=== PATIENT | female | born 1955 | race Two or more races ===

== ENCOUNTER 2023-03-26 15:13 | Inpatient (IN) | payer OTHER, MEDICAID ==
[~2023-03-26] VITALS: Ht 160 cm; Wt 81.8 kg
[2023-03-26 16:04] LABS: Basophils # (auto) 0.1 10 ^3/uL (0-0.2); Basophils % (auto) 0.8 % (0.0-2.0); Eosinophils # (auto) 0.2 10 ^3/uL (0-0.8); Eosinophils % (auto) 3.1 % (0.0-7.0); Hematocrit 44.9 % (36.0-46.0); Hemoglobin 14.5 g/dL (12.2-16.2); Lymphocytes % (auto) 13.6 % (10.0-50.0); Mean Corpuscular Hemoglobin 30.3 pg (28.0-32.0); Mean Corpuscular Hgb Conc. 32.4 g/dL (32.0-36.0); Mean Corpuscular Volume 93.5 fL (80.0-100.0); Monocytes # (auto) 0.8 10 ^3/uL (0-1.3); Monocytes % (auto) 11.6 % (0.0-12.0); Neutrophils % (auto) 70.9 % (37.0-80.0); Nucleated Red Blood Cells % 0.1 %; Red Cell Distribution Width 13.4 % (11.8-14.3)
[2023-03-26 16:19] LABS: Alanine Aminotransferase 43 U/L (7-40); Albumin 4.4 g/dL (3.2-4.8); Alkaline Phosphatase 143 U/L (46-116); Anion Gap 6.1 (5-15); Aspartate Aminotransferase 35 U/L (13-40); BUN/Creatinine Ratio 22.8 (10.0-20.0); Bilirubin, Total 0.9 mg/dL (0.2-1.0); Blood Urea Nitrogen 31 mg/dL (9-23); Calcium 9.8 mg/dL (8.7-10.4); Carbon Dioxide 30.9 mmol/L (20-30); Chloride 99 mmol/L (98-107); Glucose 143 mg/dL (74-106); Potassium 4.9 mmol/L (3.5-5.1); Sodium 136 mmol/L (136-145)
[2023-03-26] MEDS ORDERED: ENOXAPARIN SOD 80 MG/0.8ML SYRINGE SC ONE (16:45)
[2023-03-26] MEDS ORDERED: FUROSEMIDE 40 MG/4 ML VIAL IV ONE (16:45)
[2023-03-26] MEDS ORDERED: MORPHINE SULFATE INJ 2 MG/ml SYRG IV PRN (17:30)
[2023-03-26] MEDS ORDERED: ACETAMINOPHEN 325 MG TAB PO PRN (17:30)
[2023-03-26] MEDS ORDERED: DAPA1TAB4 PO (17:30)
[2023-03-26] MEDS ORDERED: ALBU108A5 PO (17:30)
[2023-03-26] MEDS ORDERED: ALBU0.633 NEB (17:30)
[2023-03-26] MEDS ORDERED: DULO1CAP5 PO (17:30)
[2023-03-26] MEDS ORDERED: TEMAZEPAM 15 MG CAP PO PRN (17:30)
[2023-03-26] MEDS ORDERED: TEMA15CA PO (17:30)
[2023-03-26] MEDS ORDERED: ATOR20TA50 PO (17:30)
[2023-03-26] MEDS ORDERED: FURO40TA4 PO (17:30)
[2023-03-26] MEDS ORDERED: SACU1TAB4 PO (17:30)
[2023-03-26] MEDS ORDERED: SPIR25TA8 PO (17:30)
[2023-03-26] MEDS ORDERED: METO1TAB9 PO (17:30)
[2023-03-26] MEDS ORDERED: BUME1TAB3 PO (17:30)
[2023-03-26] MEDS ORDERED: ENAL1TAB48 PO (17:30)
[2023-03-26] MEDS ORDERED: CITA-77 PO (17:30)
[2023-03-26] MEDS ORDERED: NITROGLYCERIN 0.4 MG SL TAB SL PRN (17:30)
[2023-03-26] MEDS ORDERED: LEVA1AER PO (17:30)
[2023-03-26] MEDS ORDERED: DEXTROSE (50%) 50ML SYRG IV PRN (17:45)
[2023-03-26 17:47] VITALS: TEMP 98.5
[2023-03-26] MEDS ORDERED: ALBUTEROL SULF 2.5 MG/0.5ML(0.5%) NEB SOLN NEB PRN (18:15)
[2023-03-26 18:25] VITALS: BP 132/87; PULSE 84; RESP 18; O2SAT 98
[2023-03-26 18:51] LABS: LDL Cholesterol 75 mg/dL (< 100); Triglycerides 128 mg/dL (< 150)
[2023-03-26 18:52] LABS: HDL Cholesterol 33 mg/dL (40-59)
[2023-03-26 18:53] LABS: Cholesterol 129 mg/dL (< 200)
[2023-03-26] MEDS ORDERED: SACUBITRIL VALSARTAN PO SCH (22:00)
[2023-03-26] MEDS ORDERED: ENOXAPARIN SOD 100 MG/1 ML SYRINGE SC SCH (22:00)
[2023-03-26] MEDS ORDERED: InsuLIN REG 1unit/0.01ml Soln (100units/ml) SC SCH (22:00)
[2023-03-26] MEDS ORDERED: ACCU-CHEK COMFORT CURVE STRIP VI SCH (22:00)
[2023-03-26] MEDS ORDERED: ENALAPRIL MALEATE 10 MG TAB PO SCH (22:00)
[2023-03-26 22:41] VITALS: BP 126/75; PULSE 90; RESP 18; O2SAT 94
[2023-03-27] MEDS ORDERED: DULoxetine HCL 30 MG CAP PO SCH (10:00)
[2023-03-27] MEDS ORDERED: CITALOPRAM HYDROBR 20 MG TAB PO SCH (10:00)
[2023-03-27] MEDS ORDERED: METOPROLOL SUCCINATE XL 50 MG TAB PO SCH (10:00)
[2023-03-27] MEDS ORDERED: SPIRONOLACTONE 25 MG TAB PO SCH (10:00)
[2023-03-27] MEDS ORDERED: FUROSEMIDE 20 MG/2 ML VIAL IV SCH (10:00)
[2023-03-27] MEDS ORDERED: ATORVASTATIN 20 MG TAB PO SCH (10:00)
== END 2023-03-27 02:02 | disposition left against medical advice (07) | DRG 292 ==
LOC: ER 15:13 → TELE 17:28
PROVIDERS: ADMIT Nurse Practitioner Family; ATTEND Nurse Practitioner Family
DX: I50.43 Acute on chronic combined systolic (congestive) and diastolic (congestive) heart failure (principal); N17.9 Acute kidney failure, unspecified; J44.9 Chronic obstructive pulmonary disease, unspecified; E11.9 Type 2 diabetes mellitus without complications; E66.01 Morbid (severe) obesity due to excess calories; R79.89 Other specified abnormal findings of blood chemistry; Z53.29 Procedure and treatment not carried out because of patient's decision for other reasons; Z60.2 Problems related to living alone; Z68.31 Body mass index [BMI] 31.0-31.9, adult; Z71.3 Dietary counseling and surveillance
CPT/HCPCS: 36415; 71045; 80053; 80061; 82962; 83036; 83880; 83930; 84443; 84484; 85025; 85379; 93005; 99291; G0378

== ENCOUNTER 2023-05-05 09:54 | Day surgery (SDC) | payer OTHER, MEDICAID ==
[~2023-05-05] VITALS: Ht 160 cm; Wt 75.3 kg
[2023-05-05] VITALS (12 sets, daily range): BP systolic 75–116; BP diastolic 34–87; PULSE 70–89; RESP 14–19; TEMP 98; O2SAT 94–97
[~2023-05-05 09:54] MED LIST: ALBU0.633 NEB; ALBU108A5 PO; ATOR20TA50 PO; CHOL100079 PO; DAPA1TAB4 PO; DULO1CAP5 PO; FLUT250M2 INH; FURO40TA4 PO; LEVA1AER PO; METO1TAB9 PO; NITR0.4S29 SL; SACU1TAB PO; SPIR25TA8 PO
[2023-05-05] MEDS ORDERED: LIDOCAINE VISCOUS 2% 15ML UD PO ONE (10:45)
[2023-05-05] MEDS ORDERED: ONDANSETRON HCL 4 MG/2 ML VIAL IV ONE (10:45)
[2023-05-05] MEDS ORDERED: MIDAZOLAM HCL 2MG/2ML 2ml VIAL (1mg/ml) IV ONE (10:45)
[2023-05-05] MEDS ORDERED: fentaNYL CITRATE 100 MCG/2 ML VL IV ONE (10:45)
[2023-05-05] MEDS ORDERED: NALOXONE HCL 0.4 MG/ML VIAL ONE (11:46)
[2023-05-05] MEDS ORDERED: FLUMAZENIL 0.1 MG/ML INJ 10ML MDV IV ONE (11:46)
[2023-05-05] MEDS ORDERED: IODIXANOL 320MG/ML 100ML BTL IV ONE (12:37)
[2023-05-05] MEDS ORDERED: LIDOCAINE 2%HCL (LOCAL ANESTH.) INJ 20ML MDV ONE (12:37)
[2023-05-05] MEDS ORDERED: VERAPAMIL 2.5MG/ML INJ 2ML VIAL IV ONE (12:53)
[2023-05-05] MEDS ORDERED: HEPARIN SODIUM (PORCINE) 5000 UNITS/ML 1ML VIAL ONE (12:53)
[2023-05-05] MEDS ORDERED: SODIUM CHL 0.9% 50 ML ONE (12:56)
[2023-05-05] MEDS ORDERED: ATOR10TA PO (14:36)
[2023-05-05] MEDS ORDERED: CHOL1TAB22 PO (14:36)
== END 2023-05-05 17:12 | disposition home or self-care (01) ==
LOC: CATH 09:54
PROVIDERS: ATTEND Internal Medicine
DX: R94.39 Abnormal result of other cardiovascular function study (principal); I25.118 Atherosclerotic heart disease of native coronary artery with other forms of angina pectoris; I42.8 Other cardiomyopathies; I11.0 Hypertensive heart disease with heart failure; I08.3 Combined rheumatic disorders of mitral, aortic and tricuspid valves; Z79.899 Other long term (current) drug therapy; I50.9 Heart failure, unspecified; Z98.890 Other specified postprocedural states
CPT/HCPCS: 93312; 93458; C1725; C1769; C1894; J1644; J2250; J2405; J3010; J7030; Q9967; 99152

== ENCOUNTER 2023-12-14 23:08 | Inpatient (IN) | payer OTHER, MEDICAID ==
[~2023-12-14] VITALS: Ht 160 cm; Wt 92.1 kg
[~2023-12-14 23:08] MED LIST changes: -ALBU0.633 NEB; +ALBU0.636 NEB; +ATOR10TA PO; -ATOR20TA50 PO; -CHOL100079 PO; +CHOL1TAB22 PO
[2023-12-15] VITALS (8 sets, daily range): BP systolic 100; BP diastolic 49; PULSE 67–92; RESP 12–18; TEMP 97.5; O2SAT 93–98
[2023-12-15] MEDS: ONDANSETRON HCL 4 MG/2 ML VIAL IV ONE (00:44)
[2023-12-15] MEDS: HYDROmorphone HCL 2 MG/ML VL/or syr IV ONE (00:46)
[2023-12-15] MEDS: PIPERACILLIN-TAZOB 3.375GM 100 ML IV ONE (00:51)
[2023-12-15 01:05] LABS: Base Excess -0.2 mmol/L (-2.0-2.0)
[2023-12-15 01:06] LABS: Basophils # (auto) 0.1 10 ^3/uL (0-0.2); Eosinophils # (auto) 0 10 ^3/uL (0-0.8); Hematocrit 49.8 % (36.0-46.0); Lymphocytes # (auto) 0.4 10 ^3/uL (0.4-5.4); Monocytes # (auto) 1.1 10 ^3/uL (0-1.3); Monocytes % (auto) 7.1 % (0.0-12.0)
[2023-12-15 01:08] LABS: Basophils % (auto) 0.9 % (0.0-2.0); Hemoglobin 15.8 g/dL (12.2-16.2); Lymphocytes % (auto) 2.4 % (10.0-50.0); Mean Corpuscular Hemoglobin 26.8 pg (28.0-32.0); Mean Corpuscular Hgb Conc. 31.7 g/dL (32.0-36.0); Mean Corpuscular Volume 84.4 fL (80.0-100.0); Neutrophils % (auto) 89.6 % (37.0-80.0); Nucleated Red Blood Cells % 0.1 %; Red Blood Cells 5.91 10^6/uL (4.0-5.20); Red Cell Distribution Width 22.1 % (11.8-14.3); White Blood Cell 15.6 10^3/uL (4.4-10.8)
[2023-12-15 01:19] LABS: INR 1.59 (0.9-1.15); Partial Thromboplastin Time 27.8 SEC (24.5-34.5); Prothrombin Time 16.3 sec (9.3-11.8)
[2023-12-15 01:26] LABS: Alanine Aminotransferase 52 U/L (7-40); Albumin 4.1 g/dL (3.2-4.8); Alkaline Phosphatase 200 U/L (46-116); Anion Gap 12 (5-15); Aspartate Aminotransferase 75 U/L (13-40); BUN/Creatinine Ratio 11.4 (10.0-20.0); Blood Urea Nitrogen 30 mg/dL (9-23); Calcium 10.8 mg/dL (8.5-10.1); Carbon Dioxide 24 mmol/L (20-30); Chloride 92 mmol/L (98-107); Glucose 79 mg/dL (74-106); Sodium 128 mmol/L (136-145)
[2023-12-15 01:27] LABS: Bilirubin, Total 5.4 mg/dL (0.2-1.0); Total Protein 6.9 g/dL (5.7-8.2)
[2023-12-15 01:37] LABS: Potassium 5.8 mmol/L (3.5-5.1)
[2023-12-15] MEDS: ASPirin 325 MG TAB PO ONE (02:55)
[2023-12-15] MEDS: ENOXAPARIN SOD 80 MG/0.8ML SYRINGE SC ONE (02:55)
[2023-12-15] MEDS: FUROSEMIDE 40 MG/4 ML VIAL IV ONE (03:49)
[2023-12-15] MEDS ORDERED: NITROGLYCERIN 0.4 MG SL TAB SL PRN (04:15)
[2023-12-15] MEDS ORDERED: ACETAMINOPHEN 325 MG TAB PO PRN (04:15)
[2023-12-15 04:40] LABS: Urine Bacteria None Seen /hpf (None Seen)
[2023-12-15 04:57] LABS: Urine Amorphous Crystal FEW /hpf (None Seen); Urine Blood 1+ /uL (Negative); Urine Clarity Turbid (Clear); Urine Color Dark-Yellow (Yellow); Urine Hyaline Cast MANY /lpf (0 - 2); Urine Mucus FEW (None Seen); Urine Protein, UAD 1+ (Negative); Urine Specific Gravity 1.018 (1.001-1.035); Urine Urobilinogen 3 mg/dL (Negative); Urine WBC 38 /hpf (0 - 5)
[2023-12-15] MEDS: FUROSEMIDE 20 MG/2 ML VIAL IV SCH ×2 (06:11→13:36)
[2023-12-15 06:30] LABS: Lactic Acid w/Reflex 3.1 mmol/L (0.4-2.0)
[2023-12-15] MEDS: SODIUM CHLORIDE 0.9% 1,550 ML IV ONE (09:03)
[2023-12-15] MEDS: METOPROLOL SUCCINATE XL 50 MG TAB PO SCH (10:00)
[2023-12-15] MEDS ORDERED: SPIRONOLACTONE 25 MG TAB PO SCH (10:00)
[2023-12-15] MEDS: ASPirin 81 mg TAB PO SCH (10:31)
[2023-12-15] MEDS: DULoxetine HCL 30 MG CAP PO SCH (10:32)
[2023-12-15] MEDS: EMPAGLIFLOZIN 10 MG TAB PO SCH (10:32)
[2023-12-15] MEDS: DOCUSATE SOD 100 MG CAP PO SCH (10:32)
[2023-12-15] MEDS: ENOXAPARIN SOD 30 MG/0.3 ML SYRINGE SC SCH (10:33)
[2023-12-15 12:28] LABS: Chloride 94 mmol/L (98-107); Sodium 129 mmol/L (136-145)
[2023-12-15 12:29] LABS: Anion Gap 14 (5-15); Calcium 10.6 mg/dL (8.7-10.4); Carbon Dioxide 21 mmol/L (20-30)
[2023-12-15 12:34] LABS: BUN/Creatinine Ratio 10.7 (10.0-20.0); Blood Urea Nitrogen 29 mg/dL (9-23); Glucose 88 mg/dL (74-106)
[2023-12-15 12:40] LABS: Potassium 5.8 mmol/L (3.5-5.1)
[2023-12-15] MEDS: DOPamine 1600MCG/ML D5W 250 ML IV SCH (13:36)
[2023-12-15] MEDS: InsuLIN REG 1unit/0.01ml Soln (100units/ml) IV ONE ×2 (14:45→22:44)
[2023-12-15] MEDS: SODIUM BICARB 8.4% 50Meq/50ml SYR Vial IV ONE (14:45)
[2023-12-15] MEDS: CALCIUM GLUC 1,000mg/50ml-NS 50 ML IV ONE (14:45)
[2023-12-15] MEDS: DEXTROSE (50%) 50ML SYRG IV ONE ×2 (14:45→21:30)
[2023-12-15] MEDS: ALBUTEROL SULF 2.5 MG/0.5ML(0.5%) NEB SOLN NEB ONE (15:09)
[2023-12-15] MEDS: DEXTROSE 10% 250 ML Bag IV ONE (15:30)
[2023-12-15 16:46] LABS: Lactic Acid w/Reflex 2.9 mmol/L (0.4-2.0)
[2023-12-15] MEDS: NOREPINEPHRINE 8 MG/250ML KIT 250 ML IV SCH (17:00)
[2023-12-15 17:05] LABS: Erythrocyte Sedimentation Rate 2 mm/hr (0-20)
[2023-12-15] MEDS: NOREPINEPHRINE 8 MG/250ML KIT 250 ML IV ONE (17:20)
[2023-12-15 18:01] LABS: Chloride 98 mmol/L (98-107); Sodium 131 mmol/L (136-145)
[2023-12-15 18:02] LABS: Anion Gap 10 (5-15); Calcium 9.6 mg/dL (8.5-10.1); Carbon Dioxide 23 mmol/L (20-30)
[2023-12-15 18:08] LABS: BUN/Creatinine Ratio 9.6 (10.0-20.0); Blood Urea Nitrogen 27 mg/dL (9-23); Glucose 75 mg/dL (74-106)
[2023-12-15 18:18] LABS: CRP High Sensitivity 14.89 mg/dL (<1.0)
[2023-12-15 18:24] LABS: Potassium 5.8 mmol/L (3.5-5.1)
[2023-12-15 19:28] LABS: Chloride 96 mmol/L (98-107); Sodium 130 mmol/L (136-145)
[2023-12-15 19:29] LABS: Anion Gap 10 (5-15); Carbon Dioxide 24 mmol/L (20-30)
[2023-12-15 19:34] LABS: Blood Urea Nitrogen 31 mg/dL (9-23); Glucose 72 mg/dL (74-106); Potassium 5.7 mmol/L (3.5-5.1)
[2023-12-15] MEDS: SODIUM ZIRCONIUM CYCL 10 GM PAK PO ONE (20:15)
[2023-12-15 20:25] LABS: BUN/Creatinine Ratio 10.6 (10.0-20.0)
[2023-12-15] MEDS: FUROSEMIDE 20 MG/2 ML VIAL IV ONE (20:51)
[2023-12-15] MEDS: HYDROCORTISONE SOD SUCC 100 MG/2ML INJ VIAL IV SCH (21:11)
[2023-12-15] MEDS: PIPERACILLIN-TAZOB 3.375GM 100 ML IV SCH (21:11)
[2023-12-15] MEDS: ATORVASTATIN 20 MG TAB PO SCH (21:12)
[2023-12-15] MEDS: DOXYCYCLINE 100 MG TAB/CAP PO SCH (21:18)
[2023-12-15] MEDS: ONDANSETRON HCL 4 MG/2 ML VIAL IV PRN (21:24)
[2023-12-15] MEDS: MORPHINE SULFATE INJ 2 MG/ml SYRG IV PRN (21:45)
[2023-12-15] MEDS: BUDESONIDE (INHALATION) 0.5 MG/2 ML NEB NEB SCH (21:56)
[2023-12-15] MEDS: ALBUTEROL SULF 2.5 MG/0.5ML(0.5%) NEB SOLN NEB PRN (21:56)
[2023-12-15] MEDS: SODIUM ZIRCONIUM CYCL 10 GM PAK PO SCH (22:00)
[2023-12-16] VITALS (94 sets, daily range): BP systolic 72–173; BP diastolic 21–125; PULSE 80–116; RESP 8–22; TEMP 97.9–99.2; O2SAT 87–98
[2023-12-16] MEDS: FUROSEMIDE 20 MG/2 ML VIAL IV SCH (01:20)
[2023-12-16] MEDS: HYDROcodone-ACET 5/325MG TAB PO PRN (04:43)
[2023-12-16 04:46] LABS: Basophils # (auto) 0 10 ^3/uL (0-0.2); Basophils % (auto) 0.2 % (0.0-2.0); Eosinophils # (auto) 0 10 ^3/uL (0-0.8); Hemoglobin 17.1 g/dL (12.2-16.2); Lymphocytes # (auto) 0.2 10 ^3/uL (0.4-5.4); Lymphocytes % (auto) 0.7 % (10.0-50.0); Mean Corpuscular Hemoglobin 26.5 pg (28.0-32.0); Mean Corpuscular Hgb Conc. 31.6 g/dL (32.0-36.0); Monocytes # (auto) 1.3 10 ^3/uL (0-1.3); Monocytes % (auto) 5.7 % (0.0-12.0); Neutrophils # (auto) 20.9 10 ^3/uL (1.6-8.6); Neutrophils % (auto) 93.4 % (37.0-80.0); Nucleated Red Blood Cells % 0.1 %; Red Blood Cells 6.44 10^6/uL (4.0-5.20); White Blood Cell 22.4 10^3/uL (4.4-10.8)
[2023-12-16 04:47] LABS: Red Cell Distribution Width 22.3 % (11.8-14.3)
[2023-12-16 04:54] LABS: Alanine Aminotransferase 48 U/L (7-40); Alkaline Phosphatase 215 U/L (46-116); Anion Gap 11 (5-15); BUN/Creatinine Ratio 12.4 (10.0-20.0); Blood Urea Nitrogen 37 mg/dL (9-23); Calcium 9.8 mg/dL (8.5-10.1); Carbon Dioxide 25 mmol/L (20-30); Chloride 94 mmol/L (98-107); Glucose 104 mg/dL (74-106); Potassium 5.5 mmol/L (3.5-5.1); Sodium 130 mmol/L (136-145)
[2023-12-16 04:55] LABS: Albumin 3.2 g/dL (3.2-4.8); Aspartate Aminotransferase 78 U/L (13-40); Bilirubin, Total 4.8 mg/dL (0.2-1.0); Total Protein 5.8 g/dL (5.7-8.2)
[2023-12-16 05:06] LABS: Anisocytosis Slight; Ovalocytes FEW; Platelet Estimate Adequate
[2023-12-16] MEDS: KETOROLAC TROMETH 30 MG/ML 1ML VIAL IV ONE (07:42)
[2023-12-16] MEDS: LACTULOSE 20Gm/30ML SOLN PO ONE ×2 (08:15→13:49)
[2023-12-16 08:45] LABS: Base Excess -1.5 mmol/L (-2.0-2.0)
[2023-12-16] MEDS ORDERED: MORPHINE SULFATE INJ 2 MG/ml SYRG IV PRN ×2 (09:00→10:45)
[2023-12-16] MEDS ORDERED: BISACODYL 10 MG RECT SUPP PR PRN (10:00)
[2023-12-16] MEDS: MORPHINE SULFATE INJ 2 MG/ml SYRG IV PRN (10:52)
[2023-12-16] MEDS: DEXTROSE (50%) 50ML SYRG IV ONE ×2 (11:09→16:32)
[2023-12-16] MEDS: InsuLIN REG 1unit/0.01ml Soln (100units/ml) IV ONE ×2 (11:10→16:36)
[2023-12-16] MEDS: SODIUM ZIRCONIUM CYCL 10 GM PAK PO ONE (13:49)
[2023-12-16] MEDS: FUROSEMIDE INJECTION 100 MG in SODIUM CHL 0.9% 100 ML IV SCH ×2 (14:30→22:24)
[2023-12-16] MEDS: LINEZOLID 600MG/300ML 300 ML IV SCH (14:34)
[2023-12-16] MEDS: BISACODYL 10 MG RECT SUPP PR ONE (14:34)
[2023-12-16] MEDS: SODIUM BICARB 8.4% 50Meq/50ml SYR Vial IV ONE (16:32)
[2023-12-16] MEDS: ALBUMIN 25% 100 ML IV SCH (16:33)
[2023-12-16 16:48] LABS: Chloride 93 mmol/L (98-107); Potassium 5.5 mmol/L (3.5-5.1); Sodium 129 mmol/L (136-145)
[2023-12-16 16:49] LABS: Anion Gap 8 (5-15); Calcium 9.4 mg/dL (8.5-10.1); Carbon Dioxide 28 mmol/L (20-30)
[2023-12-16 16:54] LABS: BUN/Creatinine Ratio 15.4 (10.0-20.0); Glucose 131 mg/dL (74-106)
[2023-12-16 17:02] LABS: Blood Urea Nitrogen 49 mg/dL (9-23)
[2023-12-16 18:48] LABS: Erythrocyte Sedimentation Rate 2 mm/hr (0-20)
[2023-12-17] VITALS (99 sets, daily range): BP systolic 80–161; BP diastolic 25–123; PULSE 90–131; RESP 7–28; TEMP 97.6–98.8; O2SAT 85–100
[2023-12-17 04:23] LABS: Chloride 92 mmol/L (98-107); Potassium 5.2 mmol/L (3.5-5.1); Sodium 130 mmol/L (136-145)
[2023-12-17 04:24] LABS: Anion Gap 10 (5-15); Calcium 9.7 mg/dL (8.7-10.4); Carbon Dioxide 28 mmol/L (20-30)
[2023-12-17 04:29] LABS: Glucose 120 mg/dL (74-106)
[2023-12-17 04:30] LABS: BUN/Creatinine Ratio 15.8 (10.0-20.0); Blood Urea Nitrogen 54 mg/dL (9-23)
[2023-12-17 04:45] LABS: Amphetamine Screen, Urine Pos (NEGATIVE); Barbiturate Scree,Urine Neg (NEGATIVE); Benzodiazephine Screen, Urine Neg (NEGATIVE); Cannabinoid Screen, Urine Neg (NEGATIVE); Cocaine Screen, Urine Neg (NEGATIVE); Opiate Scree,Urine Pos (NEGATIVE); Phencyclidine Screen, Urine Neg (NEGATIVE)
[2023-12-17] MEDS: Nepro With Carbsteady ButterPecan 8oz Carton PO SCH (08:00)
[2023-12-17 08:32] LABS: Base Excess 1.5 mmol/L (-2.0-2.0)
[2023-12-17] MEDS: LACTULOSE 20Gm/30ML SOLN PO SCH (09:15)
[2023-12-17 11:48] LABS: Hepatitis B Surface Antibody Negative (Negative)
[2023-12-17 12:00] LABS: Hepatitis B Surface Antigen Negative (Negative)
[2023-12-17] MEDS: SODIUM CHL 0.9% 1000 ML BAG XX ONE (14:15)
[2023-12-17] MEDS: ALBUMIN 25% 100 ML IV SCH (14:30)
[2023-12-17 14:32] LABS: Body Fluid Polymorphonuclear 30 % (0-25); Body Fluid Red Blood Cells 330 CUMM (0-2000); Body Fluid White Blood Cells 490 CUMM (0-200)
[2023-12-17] MEDS: FLEET ENEMA(ADULT) 135 ML PR ONE (17:51)
[2023-12-18] VITALS (95 sets, daily range): BP systolic 86–156; BP diastolic 33–107; PULSE 76–116; RESP 9–24; TEMP 97.9–98.7; O2SAT 80–100
[2023-12-18 04:24] LABS: Basophils # (auto) 0.1 10 ^3/uL (0-0.2); Basophils % (auto) 0.4 % (0.0-2.0); Eosinophils # (auto) 0 10 ^3/uL (0-0.8); Hematocrit 46.6 % (36.0-46.0); Hemoglobin 15.2 g/dL (12.2-16.2); Lymphocytes # (auto) 0.2 10 ^3/uL (0.4-5.4); Lymphocytes % (auto) 1.1 % (10.0-50.0); Mean Corpuscular Hgb Conc. 32.6 g/dL (32.0-36.0); Mean Corpuscular Volume 82.9 fL (80.0-100.0); Monocytes # (auto) 1.6 10 ^3/uL (0-1.3); Monocytes % (auto) 8.9 % (0.0-12.0); Neutrophils # (auto) 15.7 10 ^3/uL (1.6-8.6); Neutrophils % (auto) 89.6 % (37.0-80.0); Nucleated Red Blood Cells % 0.2 %; Red Blood Cells 5.63 10^6/uL (4.0-5.20); Red Cell Distribution Width 22.2 % (11.8-14.3); White Blood Cell 17.6 10^3/uL (4.4-10.8)
[2023-12-18 04:40] LABS: Alanine Aminotransferase 38 U/L (7-40); Alkaline Phosphatase 271 U/L (46-116); Anion Gap 10 (5-15); BUN/Creatinine Ratio 15.4 (10.0-20.0); Calcium 9.7 mg/dL (8.7-10.4); Carbon Dioxide 30 mmol/L (20-30); Chloride 96 mmol/L (98-107); Glucose 120 mg/dL (74-106); Potassium 3.9 mmol/L (3.5-5.1)
[2023-12-18 04:41] LABS: Albumin 3.3 g/dL (3.2-4.8); Aspartate Aminotransferase 59 U/L (13-40); Bilirubin, Total 5.8 mg/dL (0.2-1.0); Blood Urea Nitrogen 43 mg/dL (9-23); Sodium 136 mmol/L (136-145); Total Protein 5.6 g/dL (5.7-8.2)
[2023-12-18 08:06] LABS: Anti-Jo-1 Antibody <0.2 AI (0.0-0.9); Anti-dsDNA Antibody 1 IU/mL (0-9); Antichromatin Antibody <0.2 AI (0.0-0.9); Antiscleroderma-70 Antibody <0.2 AI (0.0-0.9); RNP Antibody <0.2 AI (0.0-0.9); Sjogren's Anti-SS-A Antibody <0.2 AI (0.0-0.9); Sjogren's Anti-SS-B Antibody <0.2 AI (0.0-0.9); Smith Antibody <0.2 AI (0.0-0.9)
[2023-12-18 12:06] LABS: Complement C3 98 mg/dL (82-167); Rheumatoid Arthritis Factor <10.0 IU/mL (<14.0)
[2023-12-18 13:07] LABS: Protein, Body Fluid 2.4 g/dL (.)
[2023-12-18] MEDS: METOCLOPRAMIDE HCL 5MG/ml INJ 2ml VIAL IV ONE (15:36)
[2023-12-18] MEDS ORDERED: CLINIMIX PER PHARMACY 0 ML IV SCH (17:00)
[2023-12-18] MEDS: PANTOPRAZOLE 40 MG/10 ML VIAL INJ IV ONE (17:11)
[2023-12-18] MEDS: METOCLOPRAMIDE HCL 5MG/ml INJ 2ml VIAL IV SCH (21:38)
[2023-12-18] MEDS: AMINO ACID INFUSION IN D5W 1,000 ML IV SCH (21:39)
[2023-12-18] MEDS: PANTOPRAZOLE 40 MG/10 ML VIAL INJ IV SCH (21:43)
[2023-12-19] VITALS (93 sets, daily range): BP systolic 87–178; BP diastolic 45–97; PULSE 105–126; RESP 9–22; TEMP 98–98.8; O2SAT 54–99
[2023-12-19] MEDS ORDERED: DEXTROSE (50%) 50ML SYRG IV SCH
[2023-12-19] MEDS: ACCU-CHEK COMFORT CURVE STRIP VI SCH (00:56)
[2023-12-19] MEDS: InsuLIN REG 1unit/0.01ml Soln (100units/ml) SC SCH (00:57)
[2023-12-19 04:45] LABS: Alanine Aminotransferase 46 U/L (7-40); Albumin 2.8 g/dL (3.2-4.8); Alkaline Phosphatase 320 U/L (46-116); Anion Gap 11 (5-15); Aspartate Aminotransferase 86 U/L (13-40); BUN/Creatinine Ratio 22.9 (10.0-20.0); Calcium 9.3 mg/dL (8.7-10.4); Carbon Dioxide 29 mmol/L (20-30); Chloride 96 mmol/L (98-107); Glucose 130 mg/dL (74-106); Magnesium 2.4 mg/dL (1.6-2.6); Potassium 4.1 mmol/L (3.5-5.1); Sodium 136 mmol/L (136-145)
[2023-12-19 04:46] LABS: Bilirubin, Total 5.6 mg/dL (0.2-1.0); Phosphorus 5.7 mg/dL (2.4-5.1); Total Protein 4.8 g/dL (5.7-8.2)
[2023-12-19 04:47] LABS: Blood Urea Nitrogen 58 mg/dL (9-23)
[2023-12-19] MEDS ORDERED: SEVELAMER 800 MG TAB PO SCH (08:00)
[2023-12-19] MEDS ORDERED: TPN PER PHARMACY 0 ML IV SCH (09:00)
[2023-12-19] MEDS: GASTROGRAFIN 30 ML SOL ONE (10:00)
[2023-12-19 16:12] LABS: Base Excess -0.6 mmol/L (-2.0-2.0)
[2023-12-19 17:08] LABS: Lactic Acid w/Reflex 6.2 mmol/L (0.4-2.0)
[2023-12-19] MEDS: SODIUM BICARB 8.4% 50Meq/50ml SYR Vial IV ONE (17:47)
[2023-12-19] MEDS: ALBUMIN 25% 100 ML IV SCH (17:48)
[2023-12-19] MEDS: TPN PER PHARMACY IV NR (20:58)
[2023-12-20] VITALS (98 sets, daily range): BP systolic 76–185; BP diastolic 17–92; PULSE 103–115; RESP 9–23; TEMP 97.7–98.5; O2SAT 82–100
[2023-12-20 04:10] LABS: Alanine Aminotransferase 42 U/L (7-40); Alkaline Phosphatase 236 U/L (46-116); Anion Gap 8 (5-15); BUN/Creatinine Ratio 25.7 (10.0-20.0); Calcium 9.6 mg/dL (8.7-10.4); Carbon Dioxide 32 mmol/L (20-30); Chloride 94 mmol/L (98-107); Glucose 150 mg/dL (74-106); Magnesium 2.5 mg/dL (1.6-2.6); Sodium 134 mmol/L (136-145)
[2023-12-20 04:11] LABS: Albumin 3.2 g/dL (3.2-4.8); Aspartate Aminotransferase 113 U/L (13-40); Bilirubin, Total 5.1 mg/dL (0.2-1.0); Phosphorus 5.1 mg/dL (2.4-5.1)
[2023-12-20 04:12] LABS: Total Protein 5.1 g/dL (5.7-8.2)
[2023-12-20 04:19] LABS: Basophils # (auto) 0 10 ^3/uL (0-0.2); Eosinophils # (auto) 0 10 ^3/uL (0-0.8)
[2023-12-20 04:21] LABS: Basophils % (auto) 0.2 % (0.0-2.0); Hematocrit 34.1 % (36.0-46.0); Hemoglobin 10.9 g/dL (12.2-16.2); Lymphocytes # (auto) 0.2 10 ^3/uL (0.4-5.4); Lymphocytes % (auto) 0.9 % (10.0-50.0); Mean Corpuscular Hemoglobin 26.2 pg (28.0-32.0); Mean Corpuscular Hgb Conc. 31.9 g/dL (32.0-36.0); Monocytes % (auto) 8.1 % (0.0-12.0); Neutrophils # (auto) 22.5 10 ^3/uL (1.6-8.6); Neutrophils % (auto) 90.8 % (37.0-80.0); Nucleated Red Blood Cells % 0.6 %; Red Blood Cells 4.16 10^6/uL (4.0-5.20); White Blood Cell 24.8 10^3/uL (4.4-10.8)
[2023-12-20 04:33] LABS: Blood Urea Nitrogen 80 mg/dL (9-23)
[2023-12-20 04:41] LABS: Red Cell Distribution Width 22.3 % (11.8-14.3)
[2023-12-20] MEDS ORDERED: hydrALAZINE HCL 20 MG/ML VL IV PRN (07:30)
[2023-12-20] MEDS: SODIUM CHL 0.9% 1000 ML BAG XX ONE (09:45)
[2023-12-20] MEDS: LORazepam 2MG/ML-1ML VIAL IV PRN (12:08)
[2023-12-20] MEDS: metroNIDAZOLE 500MG/100ML 100 ML IV SCH (13:27)
[2023-12-20] MEDS: TPN PER PHARMACY IV NR (21:47)
[2023-12-21] VITALS (104 sets, daily range): BP systolic 70–131; BP diastolic 29–74; PULSE 106–125; RESP 10–29; TEMP 97.5–99.6; O2SAT 87–100
[2023-12-21 04:08] LABS: Basophils # (auto) 0 10 ^3/uL (0-0.2); Basophils % (auto) 0.1 % (0.0-2.0); Eosinophils # (auto) 0 10 ^3/uL (0-0.8); Eosinophils % (auto) 0.1 % (0.0-7.0); Hematocrit 33.3 % (36.0-46.0); Hemoglobin 10.6 g/dL (12.2-16.2); Lymphocytes # (auto) 0.4 10 ^3/uL (0.4-5.4); Mean Corpuscular Hemoglobin 26.1 pg (28.0-32.0); Mean Corpuscular Hgb Conc. 31.8 g/dL (32.0-36.0); Mean Corpuscular Volume 82.1 fL (80.0-100.0); Monocytes # (auto) 1.8 10 ^3/uL (0-1.3); Monocytes % (auto) 8.4 % (0.0-12.0); Neutrophils # (auto) 19.3 10 ^3/uL (1.6-8.6); Neutrophils % (auto) 89.4 % (37.0-80.0); Nucleated Red Blood Cells % 0.3 %; Red Blood Cells 4.05 10^6/uL (4.0-5.20); White Blood Cell 21.6 10^3/uL (4.4-10.8)
[2023-12-21 04:09] LABS: Red Cell Distribution Width 22.1 % (11.8-14.3)
[2023-12-21 04:13] LABS: Alanine Aminotransferase 39 U/L (7-40); Albumin 2.9 g/dL (3.2-4.8); Alkaline Phosphatase 246 U/L (46-116); Anion Gap 4 (5-15); Aspartate Aminotransferase 91 U/L (13-40); BUN/Creatinine Ratio 25.5 (10.0-20.0); Calcium 8.9 mg/dL (8.5-10.1); Carbon Dioxide 34 mmol/L (20-30); Chloride 99 mmol/L (98-107); Glucose 123 mg/dL (74-106); Magnesium 2.4 mg/dL (1.6-2.6); Potassium 3.7 mmol/L (3.5-5.1); Sodium 137 mmol/L (136-145)
[2023-12-21 04:14] LABS: Phosphorus 3.2 mg/dL (2.4-5.1)
[2023-12-21 04:15] LABS: Bilirubin, Total 4.9 mg/dL (0.2-1.0); Total Protein 4.6 g/dL (5.7-8.2)
[2023-12-21 04:18] LABS: INR 1.16 (0.9-1.15); Partial Thromboplastin Time 34.3 SEC (24.5-34.5); Prothrombin Time 12.2 sec (9.3-11.8)
[2023-12-21 04:24] LABS: Blood Urea Nitrogen 66 mg/dL (9-23)
[2023-12-21 05:01] LABS: Anisocytosis Slight; Platelet Estimate Decreased; Target Cell FEW
[2023-12-21] MEDS: SODIUM CHL 0.9% 1000 ML BAG XX ONE (07:00)
[2023-12-21] MEDS: ALBUMIN 25% 100 ML IV ONE ×2 (10:41→10:42)
[2023-12-21 14:18] LABS: Base Excess 0.4 mmol/L (-2.0-2.0)
[2023-12-21 18:06] LABS: Antimyeloperoxidase (MPO) Ab <0.2 units (0.0-0.9); Antiproteinase 3 (PR-3) Ab <0.2 units (0.0-0.9)
[2023-12-21] MEDS: TPN PER PHARMACY IV NR (19:52)
[2023-12-22] VITALS (100 sets, daily range): BP systolic 69–141; BP diastolic 27–76; PULSE 106–138; RESP 11–34; TEMP 97.8–98.7; O2SAT 76–100
[2023-12-22 04:04] LABS: Basophils # (auto) 0 10 ^3/uL (0-0.2); Basophils % (auto) 0.1 % (0.0-2.0); Eosinophils # (auto) 0.1 10 ^3/uL (0-0.8); Hemoglobin 9.4 g/dL (12.2-16.2); Monocytes # (auto) 1.5 10 ^3/uL (0-1.3); Neutrophils # (auto) 13.3 10 ^3/uL (1.6-8.6); Nucleated Red Blood Cells % 0.2 %; White Blood Cell 15.4 10^3/uL (4.4-10.8)
[2023-12-22 04:06] LABS: Eosinophils % (auto) 0.4 % (0.0-7.0); Hematocrit 29.8 % (36.0-46.0); Lymphocytes # (auto) 0.5 10 ^3/uL (0.4-5.4); Mean Corpuscular Hemoglobin 25.8 pg (28.0-32.0); Mean Corpuscular Hgb Conc. 31.6 g/dL (32.0-36.0); Mean Corpuscular Volume 81.6 fL (80.0-100.0); Neutrophils % (auto) 86.5 % (37.0-80.0); Red Blood Cells 3.66 10^6/uL (4.0-5.20)
[2023-12-22 04:13] LABS: Red Cell Distribution Width 22.4 % (11.8-14.3)
[2023-12-22 04:24] LABS: Alanine Aminotransferase 31 U/L (7-40); Albumin 3.1 g/dL (3.2-4.8); Alkaline Phosphatase 186 U/L (46-116); Anion Gap 8 (5-15); Aspartate Aminotransferase 61 U/L (13-40); BUN/Creatinine Ratio 26.1 (10.0-20.0); Calcium 9.3 mg/dL (8.7-10.4); Carbon Dioxide 30 mmol/L (20-30); Chloride 102 mmol/L (98-107); Glucose 149 mg/dL (74-106); Magnesium 2.1 mg/dL (1.6-2.6); Potassium 3.7 mmol/L (3.5-5.1); Sodium 140 mmol/L (136-145)
[2023-12-22 04:25] LABS: Bilirubin, Total 5.4 mg/dL (0.2-1.0); Phosphorus 2.5 mg/dL (2.4-5.1); Total Protein 4.8 g/dL (5.7-8.2)
[2023-12-22 04:31] LABS: Blood Urea Nitrogen 54 mg/dL (9-23)
[2023-12-22 11:07] LABS: Cytoplasmic (C-ANCA) <1:20 titer (Neg:<1:20); Perinuclear (P-ANCA) <1:20 titer (Neg:<1:20)
[2023-12-22] MEDS: ALBUMIN 25% 100 ML IV ONE ×2 (13:15→14:11)
[2023-12-22] MEDS: DOBUTamine 1000MCG/ML 250 ML IV SCH (13:22)
[2023-12-22] MEDS: TPN PER PHARMACY IV NR (20:28)
[2023-12-22] MEDS: BUMETANIDE 2.5mg/10ml (0.25 mg/ml) INJ IV ONE (20:37)
[2023-12-23] VITALS (95 sets, daily range): BP systolic 64–206; BP diastolic 25–112; PULSE 117–128; RESP 11–30; TEMP 97.4–98.4; O2SAT 65–100
[2023-12-23 04:22] LABS: Eosinophils # (auto) 0.1 10 ^3/uL (0-0.8); Eosinophils % (auto) 0.9 % (0.0-7.0); Hemoglobin 8.3 g/dL (12.2-16.2)
[2023-12-23 04:25] LABS: Alanine Aminotransferase 30 U/L (7-40); Albumin 3.5 g/dL (3.2-4.8); Alkaline Phosphatase 139 U/L (46-116); Anion Gap 11 (5-15); Aspartate Aminotransferase 48 U/L (13-40); BUN/Creatinine Ratio 26.2 (10.0-20.0); Bilirubin, Total 6.3 mg/dL (0.2-1.0); Calcium 9.5 mg/dL (8.7-10.4); Carbon Dioxide 27 mmol/L (20-30); Chloride 105 mmol/L (98-107); Glucose 139 mg/dL (74-106); Phosphorus 2.3 mg/dL (2.4-5.1); Potassium 3.5 mmol/L (3.5-5.1); Sodium 143 mmol/L (136-145)
[2023-12-23 04:26] LABS: Basophils # (auto) 0 10 ^3/uL (0-0.2); Basophils % (auto) 0.1 % (0.0-2.0); Hematocrit 26.1 % (36.0-46.0); Lymphocytes # (auto) 0.5 10 ^3/uL (0.4-5.4); Lymphocytes % (auto) 3.8 % (10.0-50.0); Mean Corpuscular Hemoglobin 26.3 pg (28.0-32.0); Mean Corpuscular Hgb Conc. 31.8 g/dL (32.0-36.0); Mean Corpuscular Volume 82.6 fL (80.0-100.0); Monocytes # (auto) 1.3 10 ^3/uL (0-1.3); Monocytes % (auto) 9.5 % (0.0-12.0); Neutrophils # (auto) 11.5 10 ^3/uL (1.6-8.6); Neutrophils % (auto) 85.7 % (37.0-80.0); Nucleated Red Blood Cells % 0.2 %; Red Blood Cells 3.16 10^6/uL (4.0-5.20); Total Protein 5.3 g/dL (5.7-8.2); White Blood Cell 13.5 10^3/uL (4.4-10.8)
[2023-12-23 04:31] LABS: % Iron Saturation 73.6 % (15-50); Blood Urea Nitrogen 37 mg/dL (9-23)
[2023-12-23 04:35] LABS: Red Cell Distribution Width 22.4 % (11.8-14.3)
[2023-12-23 05:16] LABS: Anisocytosis Slight; Platelet Estimate Decreased; Target Cell MODERATE
[2023-12-23] MEDS: BUMETANIDE 2.5mg/10ml (0.25 mg/ml) INJ IV SCH (05:37)
[2023-12-23] MEDS: metroNIDAZOLE 500 MG TAB PO SCH (05:38)
[2023-12-23] MEDS: METOCLOPRAMIDE HCL 5MG/ml INJ 2ml VIAL IV SCH (12:06)
[2023-12-23] MEDS: POTASSIUM CHL 20MEQ/100ML 100 ML IV ONE (17:51)
[2023-12-23] MEDS: TPN PER PHARMACY IV NR (20:44)
[2023-12-24] VITALS (99 sets, daily range): BP systolic 79–140; BP diastolic 24–74; PULSE 97–135; RESP 11–33; TEMP 97.8–98.8; O2SAT 85–100
[2023-12-24 04:03] LABS: Basophils # (auto) 0 10 ^3/uL (0-0.2); Eosinophils # (auto) 0.1 10 ^3/uL (0-0.8); Lymphocytes # (auto) 0.5 10 ^3/uL (0.4-5.4)
[2023-12-24 04:07] LABS: Eosinophils % (auto) 0.8 % (0.0-7.0); Hemoglobin 8.3 g/dL (12.2-16.2); Lymphocytes % (auto) 3.2 % (10.0-50.0); Mean Corpuscular Hemoglobin 25.8 pg (28.0-32.0); Mean Corpuscular Hgb Conc. 30.9 g/dL (32.0-36.0); Mean Corpuscular Volume 83.5 fL (80.0-100.0); Monocytes # (auto) 1.2 10 ^3/uL (0-1.3); Monocytes % (auto) 8.9 % (0.0-12.0); Neutrophils # (auto) 12.2 10 ^3/uL (1.6-8.6); Neutrophils % (auto) 87.1 % (37.0-80.0); Nucleated Red Blood Cells % 0.8 %; Red Blood Cells 3.23 10^6/uL (4.0-5.20); Red Cell Distribution Width 22.9 % (11.8-14.3)
[2023-12-24 04:23] LABS: Alanine Aminotransferase 35 U/L (7-40); Albumin 3.5 g/dL (3.2-4.8); Alkaline Phosphatase 133 U/L (46-116); Anion Gap 10 (5-15); Aspartate Aminotransferase 57 U/L (13-40); Calcium 9.6 mg/dL (8.7-10.4); Carbon Dioxide 29 mmol/L (20-30); Chloride 106 mmol/L (98-107); Glucose 134 mg/dL (74-106); Magnesium 1.8 mg/dL (1.6-2.6); Phosphorus 2.5 mg/dL (2.4-5.1); Potassium 3.4 mmol/L (3.5-5.1); Sodium 145 mmol/L (136-145)
[2023-12-24 04:24] LABS: Bilirubin, Total 6.8 mg/dL (0.2-1.0); Total Protein 5.6 g/dL (5.7-8.2)
[2023-12-24 04:42] LABS: Blood Urea Nitrogen 47 mg/dL (9-23)
[2023-12-24] MEDS: POTASSIUM PHOSPHATE 22 MEQ in SODIUM CHL 0.9% 100 ML IV ONE (13:19)
[2023-12-24] MEDS: TPN PER PHARMACY IV NR (20:00)
[2023-12-24 22:32] LABS: Base Excess 3.2 mmol/L (-2.0-2.0)
[2023-12-25] VITALS (98 sets, daily range): BP systolic 82–129; BP diastolic 32–79; PULSE 116–133; RESP 11–35; TEMP 97.8–98.8; O2SAT 83–99
[2023-12-25 04:06] LABS: Basophils # (auto) 0 10 ^3/uL (0-0.2); Eosinophils % (auto) 0.3 % (0.0-7.0); Hemoglobin 7.5 g/dL (12.2-16.2); Lymphocytes # (auto) 0.5 10 ^3/uL (0.4-5.4)
[2023-12-25 04:08] LABS: Basophils % (auto) 0.2 % (0.0-2.0); Eosinophils # (auto) 0 10 ^3/uL (0-0.8); Hematocrit 23.5 % (36.0-46.0); Lymphocytes % (auto) 3.4 % (10.0-50.0); Mean Corpuscular Hemoglobin 26.5 pg (28.0-32.0); Mean Corpuscular Hgb Conc. 31.9 g/dL (32.0-36.0); Mean Corpuscular Volume 83.2 fL (80.0-100.0); Monocytes # (auto) 1.7 10 ^3/uL (0-1.3); Monocytes % (auto) 11.3 % (0.0-12.0); Neutrophils # (auto) 12.8 10 ^3/uL (1.6-8.6); Neutrophils % (auto) 84.8 % (37.0-80.0); Nucleated Red Blood Cells % 0.8 %; Red Blood Cells 2.83 10^6/uL (4.0-5.20); White Blood Cell 15.1 10^3/uL (4.4-10.8)
[2023-12-25 04:13] LABS: Red Cell Distribution Width 22.9 % (11.8-14.3)
[2023-12-25 04:33] LABS: Alanine Aminotransferase 38 U/L (7-40); Albumin 3.3 g/dL (3.2-4.8); Alkaline Phosphatase 117 U/L (46-116); Anion Gap 12 (5-15); Aspartate Aminotransferase 58 U/L (13-40); BUN/Creatinine Ratio 42.2 (10.0-20.0); Bilirubin, Total 6.5 mg/dL (0.2-1.0); Blood Urea Nitrogen 54 mg/dL (9-23); Calcium 9.4 mg/dL (8.7-10.4); Carbon Dioxide 28 mmol/L (20-30); Chloride 107 mmol/L (98-107); Glucose 139 mg/dL (74-106); Magnesium 1.8 mg/dL (1.6-2.6); Phosphorus 3.2 mg/dL (2.4-5.1); Potassium 3.5 mmol/L (3.5-5.1); Sodium 147 mmol/L (136-145); Total Protein 5.4 g/dL (5.7-8.2)
[2023-12-25] MEDS: SODIUM CHLORIDE 0.9% 250 ML IV ONE (14:45)
[2023-12-25] MEDS: NOREPINEPHRINE BITARTRATE 32 MG in SODIUM CHL 0.9% 218 ML IV SCH (16:00)
[2023-12-25] MEDS: PHENYLEPHRINE IV 250 ML IV SCH ×2 (17:56→21:08)
[2023-12-25] MEDS: TPN PER PHARMACY IV NR (20:41)
[2023-12-25 22:13] LABS: Base Excess -1.6 mmol/L (-2.0-2.0)
[2023-12-25] MEDS: PHENYLEPHRINE INJ 40 MG in SODIUM CHL 0.9% 246 ML IV SCH (22:32)
[2023-12-25] MEDS: NOREPINEPHRINE BITARTRATE 6 ML IV ONE (22:52)
[2023-12-25] MEDS: NOREPINEPHRINE 8 MG/250ML KIT 250 ML IV ONE (22:52)
[2023-12-26] VITALS (111 sets, daily range): BP systolic 83–178; BP diastolic 36–98; PULSE 109–130; RESP 12–34; TEMP 97.6–99.1; O2SAT 86–99
[2023-12-26] MEDS: PHENYLEPHRINE INJ 80 MG in SODIUM CHL 0.9% 242 ML IV SCH (00:19)
[2023-12-26] MEDS: PHENYLEPHRINE HCL 10 MG/ML VL ONE (00:22)
[2023-12-26 04:18] LABS: Basophils # (auto) 0 10 ^3/uL (0-0.2); Basophils % (auto) 0.1 % (0.0-2.0); Eosinophils # (auto) 0.1 10 ^3/uL (0-0.8); Eosinophils % (auto) 0.5 % (0.0-7.0); Hemoglobin 8.1 g/dL (12.2-16.2); Lymphocytes # (auto) 0.7 10 ^3/uL (0.4-5.4); Monocytes # (auto) 1.9 10 ^3/uL (0-1.3); Neutrophils % (auto) 84.9 % (37.0-80.0)
[2023-12-26 04:19] LABS: Hematocrit 25.4 % (36.0-46.0); Mean Corpuscular Hemoglobin 26.7 pg (28.0-32.0); Mean Corpuscular Volume 83.5 fL (80.0-100.0); Monocytes % (auto) 10.5 % (0.0-12.0); Neutrophils # (auto) 15.1 10 ^3/uL (1.6-8.6); Nucleated Red Blood Cells % 1.1 %; Red Blood Cells 3.04 10^6/uL (4.0-5.20); White Blood Cell 17.8 10^3/uL (4.4-10.8)
[2023-12-26 04:38] LABS: Alanine Aminotransferase 42 U/L (7-40); Albumin 3.3 g/dL (3.2-4.8); Alkaline Phosphatase 124 U/L (46-116); Anion Gap 12 (5-15); BUN/Creatinine Ratio 43.5 (10.0-20.0); Calcium 9.7 mg/dL (8.7-10.4); Carbon Dioxide 25 mmol/L (20-30); Chloride 108 mmol/L (98-107); Glucose 125 mg/dL (74-106); Magnesium 2.1 mg/dL (1.6-2.6); Potassium 3.9 mmol/L (3.5-5.1); Sodium 145 mmol/L (136-145)
[2023-12-26 04:39] LABS: Aspartate Aminotransferase 65 U/L (13-40); Bilirubin, Total 6.4 mg/dL (0.2-1.0); Phosphorus 3.2 mg/dL (2.4-5.1); Total Protein 5.5 g/dL (5.7-8.2)
[2023-12-26 05:26] LABS: Blood Urea Nitrogen 74 mg/dL (9-23)
[2023-12-26] MEDS ORDERED: LEVALBUTEROL HCL 1.25 MG/3 ML NEB NEB SCH (06:00)
[2023-12-26] MEDS: LEVALBUTEROL HCL 1.25 MG/3 ML NEB NEB PRN (07:14)
[2023-12-26 07:50] LABS: Base Excess -0.6 mmol/L (-2.0-2.0)
[2023-12-26] MEDS: HYDROCORTISONE SOD SUCC 100 MG/2ML INJ VIAL IV SCH (08:00)
[2023-12-26] MEDS: BUMETANIDE INJECTION 12.5 MG in GIVE UN-DILUTED 0 ML IV SCH (08:51)
[2023-12-26] MEDS: DOXYCYCLINE 100MG/250ML 250 ML IV SCH (09:37)
[2023-12-26 09:41] LABS: Base Excess -1.2 mmol/L (-2.0-2.0)
[2023-12-26] MEDS: methylPREDNISolone SOD SUCC 40 MG/ML VL IV SCH (15:52)
[2023-12-26] MEDS: metroNIDAZOLE 500MG/100ML 100 ML IV SCH (15:52)
[2023-12-26] MEDS: TPN PER PHARMACY IV NR (19:56)
[2023-12-26] MEDS: LORazepam 2MG/ML-1ML VIAL IV PRN (21:36)
[2023-12-27] VITALS (111 sets, daily range): BP systolic 73–170; BP diastolic 14–115; PULSE 110–124; RESP 13–33; TEMP 97–98.5; O2SAT 74–100
[2023-12-27 03:56] LABS: Basophils # (auto) 0 10 ^3/uL (0-0.2); Eosinophils # (auto) 0 10 ^3/uL (0-0.8); Lymphocytes # (auto) 0.5 10 ^3/uL (0.4-5.4)
[2023-12-27 03:57] LABS: Alanine Aminotransferase 48 U/L (7-40); Albumin 3.2 g/dL (3.2-4.8); Alkaline Phosphatase 137 U/L (46-116); Anion Gap 13 (5-15); Aspartate Aminotransferase 74 U/L (13-40); Bilirubin, Total 6.2 mg/dL (0.2-1.0); Blood Urea Nitrogen 79 mg/dL (9-23); Calcium 9.6 mg/dL (8.7-10.4); Carbon Dioxide 25 mmol/L (20-30); Chloride 107 mmol/L (98-107); Glucose 162 mg/dL (74-106); Phosphorus 3.6 mg/dL (2.4-5.1); Potassium 3.7 mmol/L (3.5-5.1); Sodium 145 mmol/L (136-145); Total Protein 5.5 g/dL (5.7-8.2)
[2023-12-27 03:59] LABS: Basophils % (auto) 0.1 % (0.0-2.0); Lymphocytes % (auto) 2.6 % (10.0-50.0); Mean Corpuscular Hemoglobin 27.2 pg (28.0-32.0); Mean Corpuscular Hgb Conc. 32.2 g/dL (32.0-36.0); Mean Corpuscular Volume 84.3 fL (80.0-100.0); Monocytes # (auto) 1.1 10 ^3/uL (0-1.3); Monocytes % (auto) 5.5 % (0.0-12.0); Neutrophils # (auto) 17.5 10 ^3/uL (1.6-8.6); Neutrophils % (auto) 91.8 % (37.0-80.0); Nucleated Red Blood Cells % 0.6 %; Red Blood Cells 3.33 10^6/uL (4.0-5.20)
[2023-12-27 04:27] LABS: Red Cell Distribution Width 23.5 % (11.8-14.3)
[2023-12-27 07:43] LABS: Base Excess -1.1 mmol/L (-2.0-2.0)
[2023-12-27 08:00] LABS: Anisocytosis Slight; Platelet Estimate Adequate; Target Cell FEW
[2023-12-27] MEDS: LORazepam 2MG/ML-1ML VIAL IV PRN (09:07)
[2023-12-27] MEDS: TPN PER PHARMACY IV NR (20:59)
[2023-12-28] VITALS (106 sets, daily range): BP systolic 70–198; BP diastolic 23–170; PULSE 71–130; RESP 12–55; TEMP 97.7–98.2; O2SAT 73–100
[2023-12-28] MEDS: PIPERACILLIN-TAZOB 3.375GM 100 ML IV SCH (00:12)
[2023-12-28 04:18] LABS: Basophils # (auto) 0 10 ^3/uL (0-0.2); Eosinophils # (auto) 0 10 ^3/uL (0-0.8); Hemoglobin 8.9 g/dL (12.2-16.2); Lymphocytes # (auto) 0.4 10 ^3/uL (0.4-5.4); Neutrophils # (auto) 21.4 10 ^3/uL (1.6-8.6); Nucleated Red Blood Cells % 0.4 %
[2023-12-28 04:21] LABS: Basophils % (auto) 0.2 % (0.0-2.0); Lymphocytes % (auto) 1.7 % (10.0-50.0); Mean Corpuscular Hemoglobin 26.6 pg (28.0-32.0); Mean Corpuscular Hgb Conc. 31.7 g/dL (32.0-36.0); Mean Corpuscular Volume 83.9 fL (80.0-100.0); Monocytes # (auto) 1.6 10 ^3/uL (0-1.3); Monocytes % (auto) 6.7 % (0.0-12.0); Neutrophils % (auto) 91.4 % (37.0-80.0); Red Blood Cells 3.34 10^6/uL (4.0-5.20); White Blood Cell 23.4 10^3/uL (4.4-10.8)
[2023-12-28 04:30] LABS: Red Cell Distribution Width 23.8 % (11.8-14.3)
[2023-12-28 04:48] LABS: Alanine Aminotransferase 71 U/L (7-40); Albumin 2.9 g/dL (3.2-4.8); Alkaline Phosphatase 150 U/L (46-116); Anion Gap 12 (5-15); Aspartate Aminotransferase 114 U/L (13-40); BUN/Creatinine Ratio 43.8 (10.0-20.0); Blood Urea Nitrogen 70 mg/dL (9-23); Calcium 9.6 mg/dL (8.7-10.4); Carbon Dioxide 23 mmol/L (20-30); Chloride 107 mmol/L (98-107); Glucose 176 mg/dL (74-106); Magnesium 2.3 mg/dL (1.6-2.6); Potassium 4.2 mmol/L (3.5-5.1); Sodium 142 mmol/L (136-145)
[2023-12-28 04:49] LABS: Bilirubin, Total 5.6 mg/dL (0.2-1.0); Phosphorus 4.4 mg/dL (2.4-5.1); Total Protein 5.1 g/dL (5.7-8.2)
[2023-12-28 08:35] LABS: Base Excess -1.3 mmol/L (-2.0-2.0)
[2023-12-28 12:56] LABS: Sodium Urine < 10 mmol/L (40-220)
[2023-12-28 13:01] LABS: Protein, Urine 57.2 mg/dL (0.0-11.9)
[2023-12-28 13:04] LABS: Creatinine, Urine 32.82 mg/dL (30.0-125.0); Urine Protein/Creatinine Ratio 1.74
[2023-12-28] MEDS: VASOPRESSIN 20 UNITS in SODIUM CHL 0.9% 99 ML IV SCH (13:51)
[2023-12-28] MEDS: HALOPERIDOL LACTATE 5 MG/ML INJ VIAL ONE (19:37)
[2023-12-28] MEDS: HALOPERIDOL LACTATE 5 MG/ML INJ VIAL IM ONE (19:40)
[2023-12-28 19:46] LABS: Base Excess -3.4 mmol/L (-2.0-2.0)
[2023-12-28 20:29] LABS: Lactic Acid w/Reflex 2.2 mmol/L (0.4-2.0)
[2023-12-28] MEDS: methylPREDNISolone SOD SUCC 40 MG/ML VL IV SCH (21:53)
[2023-12-28] MEDS: ALBUMIN 5% 250 ML IV ONE (22:12)
[2023-12-28] MEDS: TPN PER PHARMACY IV NR (23:09)
[2023-12-29] VITALS (103 sets, daily range): BP systolic 70–143; BP diastolic 32–72; PULSE 107–129; RESP 22–56; TEMP 98.9–99.8; O2SAT 78–100
[2023-12-29 04:21] LABS: Basophils # (auto) 0 10 ^3/uL (0-0.2); Basophils % (auto) 0.2 % (0.0-2.0); Eosinophils # (auto) 0 10 ^3/uL (0-0.8); Hemoglobin 8.4 g/dL (12.2-16.2); Lymphocytes # (auto) 0.2 10 ^3/uL (0.4-5.4); Monocytes # (auto) 0.8 10 ^3/uL (0-1.3); White Blood Cell 20.6 10^3/uL (4.4-10.8)
[2023-12-29 04:25] LABS: Hematocrit 26.3 % (36.0-46.0); Mean Corpuscular Volume 84.2 fL (80.0-100.0); Monocytes % (auto) 3.8 % (0.0-12.0); Neutrophils # (auto) 19.6 10 ^3/uL (1.6-8.6); Nucleated Red Blood Cells % 0.8 %; Red Blood Cells 3.12 10^6/uL (4.0-5.20)
[2023-12-29 04:39] LABS: Alanine Aminotransferase 84 U/L (7-40); Alkaline Phosphatase 174 U/L (46-116); Anion Gap 15 (5-15); Aspartate Aminotransferase 117 U/L (13-40); BUN/Creatinine Ratio 51.5 (10.0-20.0); Calcium 9.6 mg/dL (8.7-10.4); Carbon Dioxide 22 mmol/L (20-30); Chloride 105 mmol/L (98-107); Glucose 142 mg/dL (74-106); Magnesium 2.4 mg/dL (1.6-2.6); Potassium 4.5 mmol/L (3.5-5.1); Sodium 142 mmol/L (136-145)
[2023-12-29 04:40] LABS: Bilirubin, Total 7.3 mg/dL (0.2-1.0); Phosphorus 5.1 mg/dL (2.4-5.1)
[2023-12-29 04:55] LABS: Red Cell Distribution Width 24.4 % (11.8-14.3)
[2023-12-29 04:56] LABS: Blood Urea Nitrogen 106 mg/dL (9-23)
[2023-12-29 06:04] LABS: Anisocytosis Moderate; Large Platelets FEW; Platelet Estimate Adequate; Stomatocytes Moderate; Target Cell MANY
[2023-12-29 09:09] LABS: Base Excess -5.9 mmol/L (-2.0-2.0)
[2023-12-29] MEDS: methylPREDNISolone SOD SUCC 40 MG/ML VL IV SCH (10:28)
[2023-12-29] MEDS: HALOPERIDOL LACTATE 5 MG/ML INJ VIAL IM PRN (11:12)
[2023-12-29 17:04] LABS: Base Excess -5.7 mmol/L (-2.0-2.0)
[2023-12-29] MEDS: TPN PER PHARMACY IV NR (20:28)
[2023-12-30] VITALS (99 sets, daily range): BP systolic 0–146; BP diastolic 0–93; PULSE 59–112; RESP 0–33; TEMP 98–99.5; O2SAT 20–100
[2023-12-30 01:33] LABS: Base Excess -6.9 mmol/L (-2.0-2.0)
[2023-12-30 04:40] LABS: Hemoglobin 10.3 g/dL (12.2-16.2)
[2023-12-30 04:44] LABS: Mean Corpuscular Hemoglobin 26.8 pg (28.0-32.0); Mean Corpuscular Hgb Conc. 31.2 g/dL (32.0-36.0); Mean Corpuscular Volume 86.1 fL (80.0-100.0); Red Blood Cells 3.83 10^6/uL (4.0-5.20); White Blood Cell 17.9 10^3/uL (4.4-10.8)
[2023-12-30 04:45] LABS: Red Cell Distribution Width 25.1 % (11.8-14.3)
[2023-12-30 04:47] LABS: Basophils % (manual) 0 (0.0-2.0); Blast Cells 0; Eosinophils % (manual) 0 (0-7); Lymphocytes % (manual) 0 (10.0-50.0); Metamyelocytes % 0; Promyelocytes % 0; Reactive Lymphocytes 0
[2023-12-30 04:58] LABS: Alanine Aminotransferase 73 U/L (7-40); Albumin 2.9 g/dL (3.2-4.8); Alkaline Phosphatase 171 U/L (46-116); Anion Gap 17 (5-15); Aspartate Aminotransferase 100 U/L (13-40); BUN/Creatinine Ratio 49.4 (10.0-20.0); Calcium 9.8 mg/dL (8.7-10.4); Carbon Dioxide 19 mmol/L (20-30); Chloride 105 mmol/L (98-107); Glucose 123 mg/dL (74-106); Magnesium 2.9 mg/dL (1.6-2.6); Potassium 4.7 mmol/L (3.5-5.1); Sodium 141 mmol/L (136-145)
[2023-12-30 04:59] LABS: Bilirubin, Total 9.1 mg/dL (0.2-1.0); Phosphorus 6.2 mg/dL (2.4-5.1); Total Protein 5.1 g/dL (5.7-8.2)
[2023-12-30 05:14] LABS: Blood Urea Nitrogen 121 mg/dL (9-23)
[2023-12-30 05:33] LABS: Band Neutrophils % (manual) 32; Monocytes % (manual) 1 (0-12); Myelocytes % 2; Platelet Estimate Adequate
[2023-12-30 05:34] LABS: Anisocytosis Moderate; Large Platelets FEW; Stomatocytes Few; Target Cell MANY
[2023-12-30] MEDS ORDERED: DOPamine 1600MCG/ML D5W 250 ML IV SCH (09:15)
[2023-12-30] MEDS ORDERED: Nepro With Carb Steady 1 Liter Bottle GT SCH (09:15)
[2023-12-30 11:17] LABS: Base Excess -14.8 mmol/L (-2.0-2.0)
[2023-12-30] MEDS: SODIUM BICARB 8.4% 50Meq/50ml SYR Vial IV ONE (11:53)
[2023-12-30] MEDS: DOPamine 1600MCG/ML D5W 250 ML IV SCH (12:24)
[2023-12-30] MEDS: BUMETANIDE INJECTION 25 MG in GIVE UN-DILUTED 0 ML IV SCH (12:44)
[2023-12-30] MEDS: BUMETANIDE ONE (12:47)
[2023-12-30] MEDS: VASOPRESSIN 20 UNITS in SODIUM CHL 0.9% 99 ML IV SCH (17:15)
[2023-12-30] MEDS: TPN PER PHARMACY IV NR (20:41)
== END 2023-12-31 04:00 | DRG 871 ==
LOC: ER 23:08 → EDBD 23:08 → TELE 12-15 04:20 → ICU WEST 12-15 23:58
PROVIDERS: ADMIT Internal Medicine; ATTEND Nurse Practitioner Acute Care
PROC: 02HV33Z Insertion of Infusion Device into Superior Vena Cava, Percutaneous Approach (ICD-10-PCS; principal; 2023-12-16)
PROC: 0W993ZZ Drainage of Right Pleural Cavity, Percutaneous Approach (ICD-10-PCS; 2023-12-17)
PROC: 5A1D70Z Performance of Urinary Filtration, Intermittent, Less than 6 Hours Per Day (ICD-10-PCS; 2023-12-17)
PROC: 0JH63XZ Insertion of Tunneled Vascular Access Device into Chest Subcutaneous Tissue and Fascia, Percutaneous Approach (ICD-10-PCS; 2023-12-17)
PROC: 02HV33Z Insertion of Infusion Device into Superior Vena Cava, Percutaneous Approach (ICD-10-PCS; 2023-12-17)
PROC: B548ZZA Ultrasonography of Superior Vena Cava, Guidance (ICD-10-PCS; 2023-12-17)
PROC: 5A1D70Z Performance of Urinary Filtration, Intermittent, Less than 6 Hours Per Day (ICD-10-PCS; 2023-12-18)
PROC: 5A1D70Z Performance of Urinary Filtration, Intermittent, Less than 6 Hours Per Day (ICD-10-PCS; 2023-12-20)
PROC: 5A1D70Z Performance of Urinary Filtration, Intermittent, Less than 6 Hours Per Day (ICD-10-PCS; 2023-12-21)
PROC: 5A1D70Z Performance of Urinary Filtration, Intermittent, Less than 6 Hours Per Day (ICD-10-PCS; 2023-12-22)
PROC: 5A09357 Assistance with Respiratory Ventilation, Less than 24 Consecutive Hours, Continuous Positive Airway Pressure (ICD-10-PCS; 2023-12-25)
PROC: 5A09357 Assistance with Respiratory Ventilation, Less than 24 Consecutive Hours, Continuous Positive Airway Pressure (ICD-10-PCS; 2023-12-26)
PROC: 5A09357 Assistance with Respiratory Ventilation, Less than 24 Consecutive Hours, Continuous Positive Airway Pressure (ICD-10-PCS; 2023-12-27)
PROC: 5A09357 Assistance with Respiratory Ventilation, Less than 24 Consecutive Hours, Continuous Positive Airway Pressure (ICD-10-PCS; 2023-12-28)
PROC: 5A09357 Assistance with Respiratory Ventilation, Less than 24 Consecutive Hours, Continuous Positive Airway Pressure (ICD-10-PCS; 2023-12-29)
PROC: 5A0935A Assistance with Respiratory Ventilation, Less than 24 Consecutive Hours, High Flow/Velocity Cannula (ICD-10-PCS; 2023-12-29)
DX: A41.9 Sepsis, unspecified organism (principal); G93.41 Metabolic encephalopathy; I21.4 Non-ST elevation (NSTEMI) myocardial infarction; J96.01 Acute respiratory failure with hypoxia; N17.0 Acute kidney failure with tubular necrosis; R65.21 Severe sepsis with septic shock; I50.43 Acute on chronic combined systolic (congestive) and diastolic (congestive) heart failure; J18.9 Pneumonia, unspecified organism; J44.0 Chronic obstructive pulmonary disease with (acute) lower respiratory infection; K55.9 Vascular disorder of intestine, unspecified; I47.20 Ventricular tachycardia, unspecified; E87.20 Acidosis, unspecified; I13.0 Hypertensive heart and chronic kidney disease with heart failure and stage 1 through stage 4 chronic kidney disease, or unspecified chronic kidney disease; K56.7 Ileus, unspecified; J91.8 Pleural effusion in other conditions classified elsewhere; L03.116 Cellulitis of left lower limb; L03.115 Cellulitis of right lower limb; L02.416 Cutaneous abscess of left lower limb; L02.415 Cutaneous abscess of right lower limb; J44.1 Chronic obstructive pulmonary disease with (acute) exacerbation; E87.5 Hyperkalemia; Z66 Do not resuscitate; I73.9 Peripheral vascular disease, unspecified; K52.9 Noninfective gastroenteritis and colitis, unspecified; K59.00 Constipation, unspecified; E66.01 Morbid (severe) obesity due to excess calories; N18.9 Chronic kidney disease, unspecified; F15.10 Other stimulant abuse, uncomplicated; M21.962 Unspecified acquired deformity of left lower leg; R74.01 Elevation of levels of liver transaminase levels; I25.10 Atherosclerotic heart disease of native coronary artery without angina pectoris; E80.6 Other disorders of bilirubin metabolism; D64.9 Anemia, unspecified; Z68.36 Body mass index [BMI] 36.0-36.9, adult; Z79.899 Other long term (current) drug therapy; Y95 Nosocomial condition
CPT/HCPCS: 36415; 36600; 71045; 73620; 74018; 74176; 76604; 76705; 76942; 80048; 80053; 80307; 81001; 82140; 82570; 82595; 82728; 82805; 82962; 83036; 83516; 83520; 83540; 83550; 83605; 83735; 83880; 83986; 84100; 84156; 84300; 84478; 84484; 85007; 85025; 85027; 85379; 85610; 85652; 85730; 86141; 86160; 86225; 86235; 86256; 86431; 86706; 87040; 87081; 87086; 87205; 87340; 89051; 90935; 93005; 93306; 93925; 93970; 94640; 94660; 99291; C9113; G0378; J1642; J1815; J1885; J2405; J2543; J3480; J3490; J7131; P9047